=== PATIENT | male | born 1975 | race Caucasian/White ===

== ENCOUNTER 2025-01-08 14:46 | Emergency (ER) | payer MEDICARE, MEDICAID, SELFPAY ==
--- NOTE | 2025-01-08 14:53 | EKG_ITS ---
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
[2025-01-08 15:04] VITALS: BP 107/57; PULSE 74; RESP 18; TEMP 36.9; O2SAT 96
--- NOTE | 2025-01-08 15:16 | XR_ITS ---
Examination: CT brain head without contrast. 2-D sagittal coronal reconstructions Date and time of exam:January 08, 2025 1650 hours Comparison July 30, 2014 INDICATIONS: Headache and generalized weakness left facial numbness today CTDI: vol (mGy):56.5 DLP: (mGycm):1112 Technique: Multiple CT axial sections of the brain have been obtained, 5 mm slice thickness. Contrast has not been administered. 2-D sagittal, coronal reconstructions have been obtained Low dose protocols were performed. One or more of the following dose reduction techniques were used; automated exposure control, adjustment of the mA and/or KV according to patient size, use of iterative reconstruction technique. Findings: No significant ventricular enlargement. Intra-axial or extra-axial hemorrhage density is not seen. No mass effect or midline shift Basal cisterns are not remarkable. Fourth ventricle is midline. Cranial vault intact. Impression: Negative for acute hemorrhage, mass effect or midline shift As clinically warranted, brain MRI follow-up would best assess for demyelinating disease, acute ischemic change
--- NOTE | 2025-01-08 15:16 | XR_ITS ---
Examination: PA lateral chest 2 views TECHNIQUE: Upright PA lateral chest 2 views Exam date and time: January 08, 2025 1601 hours Comparison August 21, 2020 INDICATIONS: Onset chest pain today. FINDINGS: Normal heart size. CABG. Minor subsegmental atelectasis left midlung. No pneumonia or pulmonary edema IMPRESSION: No pneumonia or pulmonary edema
--- NOTE | 2025-01-08 15:17 | PD.EDRME ---
Rapid Medical Screening Exam E Arrival date/time: 01/08/25 14:46 49-year-old male with a history of CVA, [place] with 4 stents, hyperlipidemia, hypertension presents to the emergency room with a chief complaint of sternal chest pain that began today at 6 in the morning. Patient states he is also having left-sided facial numbness and left-sided arm numbness that also began at 6 AM this morning. I have greeted and performed a focused initial assessment of this patient. A comprehensive ED assessment and evaluation of the patient, analysis of all test results, and completion of the medical decision making process will be conducted by additional ED providers. Chief Complaint: General Adult/Misc Complain Time Seen by Provider: 01/08/25 15:10 Vital signs: Vital Signs Temperature 98.5 F 01/08/25 15:04 Pulse Rate 74 01/08/25 15:04 Respiratory Rate 18 01/08/25 15:04 Blood Pressure 107/57 L 01/08/25 15:04 Pulse Oximetry (%) 96 01/08/25 15:04 Oxygen Delivery Method Room Air 01/08/25 15:04 Vital signs reviewed by provider: Yes
[2025-01-08 16:02] LABS: Basophils % (Auto) 1 % (0-2.5); Eosinophils # (Auto) 0.2 Thou/mm3 (0.0-0.5); Eosinophils % (Auto) 3 % (0-10); Hematocrit 39.6 % (41.0-53.0); Hemoglobin 14.2 g/dL (13.5-16.0); Immature Granulocytes % (Auto) 0 % (0-0); Immature Granulocytes Auto 0.01 Thou/mm3 (0.00-0.00); Lymphocytes # (Auto) 1.1 Thou/mm3 (1.0-4.8); Lymphocytes % (Auto) 17 % (10-50); Mean Corpuscular HGB Conc 35.9 g/dl (31.0-37.0); Mean Corpuscular Hemoglobin 31.1 pg (25.0-35.0); Mean Corpuscular Volume 87 fL (80-100); Monocytes # (Auto) 0.5 Thou/mm3 (0.0-0.8); Monocytes % (Auto) 8 % (0-12); Neutrophils # (Auto) 4.5 Thou/mm3 (1.8-7.7); Neutrophils % (Auto) 72 % (37-80); Nucleated Red Blood Cell % 0 /100 WBC (0); Platelet Count 243 Thou/mm3 (140-440); RDW Standard Deviation 37.3 fL (35.1-43.9); Red Blood Count 4.57 Miln/mm3 (4.50-5.90); White Blood Count 6.2 Thou/mm3 (3.8-10.6)
[2025-01-08 16:17] LABS: INR 1.1 (0.9-1.3); Partial Thromboplastin Time 28.8 Seconds (22.0-36.0); Prothrombin Time 11.5 Seconds (9.0-12.2)
[2025-01-08 16:19] LABS: Alanine Aminotransferase 27 U/L (10-49); Albumin, Serum 4.2 gm/dL (3.5-5.0); Albumin/Globulin Ratio 1.7 (1.2-2.2); Alkaline Phosphatase 79 U/L (46-116); Anion Gap 8 (7-16); Aspartate Amino Transferase 28 U/L (0-34); BUN/Creatinine Ratio 16 Ratio (12-20); Bilirubin,Total 0.6 mg/dL (0.3-1.2); Blood Urea Nitrogen 22 mg/dL (9-23); Calcium 8.4 mg/dL (8.3-10.6); Calcium (Corrected) 8.4 mg/dL (8.5-10.1); Carbon Dioxide 24.7 mMol/L (20.0-31.0); Chloride 103 mMol/L (98-107); Creatinine (Component) 1.4 mg/dL (0.6-1.3); Globulin 2.5 gm/dL (2.3-3.5); Glucose 253 mg/dL (74-106); Magnesium 1.8 mg/dL (1.6-2.6); Osmolality,Calculated 284 (275-295); Potassium 5.2 mMol/L (3.4-5.1); Sodium 136 mMol/L (136-145); Total Protein 6.7 gm/dL (5.7-8.2); Troponin I < 0.020 ng/mL (0.0-0.045); eGFR > 60 See Note
[2025-01-08 16:33] LABS: Collection Type, Urine Clean Catch
[2025-01-08 16:42] LABS: Bilirubin,Urine Negative (Negative); Blood,Urine Negative (Negative); Clarity,Urine Clear (Clear/Hazy); Color,Urine Lt-Yellow (Lt Yel-Yel); Glucose, Urine 1+ (Negative); Ketones,Urine Negative (Negative); Leukocyte Esterase,Urine Negative (Negative); Nitrite,Urine Negative (Negative); PH,Urine 5.5 (5.0-7.0); Protein,Urine Negative (Neg - Trace); RBC,Urine < 1 /hpf (0-3); Specific Gravity,Urine 1.016 (1.001-1.035); Squamous Epithelial Cell,Urine 6 /hpf (0-5); Urobilinogen,Urine Negative mg/dL (0.0-1.0); WBC,Urine 2 /hpf (0-5)
[2025-01-08 16:53] LABS: B-Type Natriuretic Peptide 28 pg/mL (0-100)
[2025-01-08 17:09] LABS: Amphetamine/Methamp Scrn,U Negative (Negative); Barbiturate Screen,Urine Negative (Negative); Benzodiazepines Screen,Urine Negative (Negative); Benzoylecgonine Screen, Ur Negative (Negative); Fentanyl Screen,Urine Negative (Negative); Opiate Screen,Urine Positive (Negative); THC Screen,Urine Negative (Negative)
--- NOTE | 2025-01-08 17:47 | PD.EDADULT ---
ED General RME/HPI General Chief complaint: General Adult/Misc Complain Stated complaint: CHEST PAIN AT 6:30AM UNTIL NOW Time Seen by Provider: 01/08/25 15:10 Arrival date/time: 01/08/25 14:46 CC: Chest pain left anterior onset at 645 this morning, lasting approximately 7 hours stopped approximately 2 hours ago per the patient. Patient states if he pressed hard enough for this hand he could reproduce the pain denies shortness of breath or difficulty breathing also complaining of chronic constipation and his legs feeling weird patient currently denies shortness of breath difficulty breathing headache nausea vomiting or diarrhea. RME / HPI RME / HPI narrative: 01/08/25 14:46 49-year-old male with a history of CVA, [place] with 4 stents, hyperlipidemia, hypertension presents to the emergency room with a chief complaint of sternal chest pain that began today at 6 in the morning. Patient states he is also having left-sided facial numbness and left-sided arm numbness that also began at 6 AM this morning. I have greeted and performed a focused initial assessment of this patient. A comprehensive ED assessment and evaluation of the patient, analysis of all test results, and completion of the medical decision making process will be conducted by additional ED providers. Related Data Home Medications ?Medication ?Instructions ?Recorded ?Confirmed insulin pump-infusion set-blood ##0 07/30/14 06/15/24 glucose meter kit rosuvastatin 20 mg tablet (Crestor) 20 mg PO HS 11/02/17 06/15/24 carvedilol 12.5 mg tablet 25 mg PO BID 01/04/18 06/15/24 pregabalin 300 mg capsule (Lyrica) 300 mg PO HS 06/28/20 06/15/24 duloxetine 60 mg capsule,delayed 60 mg PO HS 03/21/21 06/15/24 release (Cymbalta) lorazepam 2 mg tablet (Ativan) 2 mg PO HS 03/21/21 06/15/24 alirocumab 75 mg/mL subcutaneous 75 mg subcut Q14D 04/23/24 06/15/24 pen injector (Praluent Pen) hydrocodone 10 mg-acetaminophen 1 tab PO QHS PRN 05/18/24 06/15/24 325 mg tablet nitrofurantoin 100 mg PO BID 05/18/24 06/15/24 monohydrate/macrocrystals 100 mg capsule (Macrobid) Previous Rx's ?Medication ?Instructions ?Recorded clopidogrel 75 mg tablet 75 mg PO QDAY #30 tabs 04/25/24 tamsulosin 0.4 mg capsule 0.8 mg (2 x 0.4 mg) PO QDAY #60 04/25/24 caps Allergies Allergy/AdvReac Type Severity Reaction Status Date / Time Penicillins Allergy Intermediate Rash Verified 01/08/25 14:51 hydromorphone (From Dilaudid) AdvReac Intermediate Agitated Verified 01/08/25 14:51 cheese AdvReac Mild Nausea Verified 01/08/25 14:51 egg AdvReac Mild I JUST DO Verified 01/08/25 14:51 NOT LIKE TO EAT EGG Review of Systems Review of Systems Narrative Review of Systems: GEN: No fever, no chills, no weight loss EYES: No discharge, no visual changes, no pain HEENT: No ear pain, no congestion, no sore throat PULM: No shortness of breath, no cough, no congestion CV: + chest pain, no dyspnea on exertion, no palpitations GI: No nausea, no vomiting, no diarrhea, no pain, no constipation : No frequency, no urgency, no dysuria MUSC/SKEL: No joint pain, no back pain SKIN: No rash PSYCH: No hallucinations, no depression HEME/LYMPH: No easy bleeding or bruising tendencies NEURO: No weakness, no headache Past Medical History Past Medical History NEUROLOGIC: Positive Neurological Disorders, Seizures, Migraine and Head Trauma CARDIAC: Positive Cardiac Disorders, Myocardial Infarction, Coronary Artery Disease, Atherosclerotic Heart Disease, Peripheral Vascular Disease, Hypercholesterolemia and Hypertension; Negative Congestive Heart Failure RESPIRATORY: Positive Asthma; Negative Chronic Obstructive Pulmonary Disease (COPD), Bronchitis or Sleep Apnea GASTROINTESTINAL: Positive Gastrointestinal Disorders, Gall Bladder Disease, Gastrointestinal Bleed, Ulcer, Gastroesophageal Reflux Disease and Obesity GENITOURINARY: Negative Genitourinary Disorders or Renal Disease MUSCULOSKELETAL: Negative Musculoskeletal Disorders ENT: Positive Head Trauma; Negative Blind or Eye Prosthesis ENDOCRINE: Positive Endocrine Disorders and Diabetes Mellitus Type 1; Negative Diabetes Mellitus Type 2 HEMATOLOGIC: Negative Blood Disorders, Anemia or Sickle Cell Disease PSYCHO/SOCIAL: Positive Depression and Anxiety OTHER HISTORY: Positive Hospitalization, Autoimmune Disease, Falls and Chicken Pox; Negative Blood Transfusions, Anesthesia Reactions, Measles, Mumps or Cancer Family History FAMILY HISTORY: Positive Family Cardiac Disorders and Family Surgery; Negative Family Anesthesia Reaction Surgical History SURGICAL: Positive Cardiac Surgery, Open Heart Surgery, Coronary Artery Bypass Graft, Coronary Stent, Angiogram, Eye Surgery and Abdominal Surgery Social History SMOKING STATUS: Never smoker SECOND HAND EXPOSURE: No SUBSTANCE USE: does not use ED Exam Narrative Physical exam: [General: Not in any acute distress Head normocephalic HEENT: Eyes pupils are PERRLA EOMs intact. Mouth pink moist membranes uvula is midline swallow symmetrical phonation is normal. All other subsystems of HEENT are within acceptable limits Neck is supple nontender Chest equal chest rise nontender to palpation Respiratory: Clear to auscultation no wheezes crackles or rubs CV: Rate rhythm is regular no murmurs rubs or clicks Abdomen is distended secondary to body habitus soft nontender no masses positive bowel sounds all 4 quadrants Back: No CVA tenderness no spinous process tenderness from cervical spine thoracic and lumbar spine Skin: Intact no petechiae rash induration ulceration or crepitus Extremities: Moving all extremity against resistance cap refill less than 2 seconds neurosensory intact. No lower extremity edema. Neuro: Awake alert oriented x3 Glascow coma 15 no focal deficits] Course Course Course Narrative: Patient shows no acute finding chest pain has resolved. Patient's potassium is risen slightly to 5.2 but no acute finding at this point in time patient is to closely follow-up with his primary care provider or return of the worsening of symptoms. Quality Measures none Orders Category Date Time Status EKG (ED ONLY) *Do not use* NOW Care 01/08/25 14:[address] head/brain wo con Stat Exams 01/08/25 15:16 Completed EKG (ED Only) Stat Exams 01/08/25 14:53 Draft XR chest 2V Stat Exams 01/08/25 15:16 Completed B-Type Natriuretic Peptide Stat Lab 01/08/25 15:31 Completed CBC Stat Lab 01/08/25 15:31 Completed Comprehensive Metabolic Panel Stat Lab 01/08/25 15:31 Completed Drug Screen,Urine Stat Lab 01/08/25 16:00 Completed Magnesium Stat Lab 01/08/25 15:31 Completed Partial Thromboplastin Time Stat Lab 01/08/25 15:31 Completed Prothrombin Time with INR Stat Lab 01/08/25 15:31 Completed Troponin I Stat Lab 01/08/25 15:31 Completed Urinalysis Stat Lab 01/08/25 16:00 Completed Vital Signs Vital signs: Vital Signs Temperature 98.5 F 01/08/25 15:04 Pulse Rate 74 01/08/25 15:04 Respiratory Rate 18 01/08/25 15:04 Blood Pressure 107/57 L 01/08/25 15:04 Pulse Oximetry (%) 96 01/08/25 15:04 Oxygen Delivery Method Room Air 01/08/25 15:04 Discharge Plan Plan Patient Disposition: HOME (Self Care) Patient condition on transfer: Stable Prescriptions/Referrals Prescriptions/Med Rec: No Action hydrocodone-acetaminophen 10-325 mg tablet 1 tab PO QHS PRN nitrofurantoin monohyd/m-cryst [Macrobid] 100 mg capsule 100 mg PO BID Rx Instructions: must administer with a meal/food (DME) insulin pump-infus. set-meter Kit SQ QDAY Qty: 0 Patient Comments: NOVOLOG INSULIN PUMP PROGRAMMED BY ENDOCRONOLIGI rosuvastatin [Crestor] 20 mg Tablet 20 mg PO HS carvedilol 12.5 mg Tablet 25 mg PO BID pregabalin [Lyrica] 300 mg Capsule 300 mg PO HS lorazepam [Ativan] 2 mg Tablet 2 mg PO HS MDD 1 duloxetine [Cymbalta] 60 mg Capsule,Delayed Release(Dr/Ec) 60 mg PO HS Praluent Pen 75 mg/mL Pen Injector 75 mg SUBCUT Q14D tamsulosin 0.4 mg Capsule 0.8 mg PO QDAY Qty: 60 0RF clopidogrel 75 mg Tablet 75 mg PO QDAY Qty: 30 0RF Referrals: Christopher Vidal MD [Primary Care Provider] - In 1 week Problem List Clinical Impression: Chest pain, Hyperkalemia Patient/Caregiver Discharge Instructions Education Materials: ED Chest Pain, Uncertain Cause Additional Instructions: Follow-up with your primary care provider your potassium has risen slightly please make sure you have it closely monitored. If there is a worsening of symptoms return the emergency room immediately for further evaluation. Print Language: Ecuadorean Stand Alone Forms: Estefania Award Info., Work/School Release, Patient Portal Info Letter PA/REAL ESTATE BROKER Supervising Physician PA/REAL ESTATE BROKER Supervising Physician: Lito Mueller ENP MDM Clinical Information Provided by: patient Medical Records reviewed [facility] Meds/Rx considered, not ordered None Labs/Rad/Tests considered, not ordered None Chronic Illness/Social Conditions Explain: Cardiac history hypertension hyperlipidemia EKG Interpretation EKG #1: EKG Interpretation: EKG performed at 1458 shows a ventricular rate of 73 SC interval 136 QRS of 94 QTc of 423 this is normal sinus rhythm. Labs Labs: Interpreted by ok Lab(s) Interpretation(s): CBC shows no leukocytosis anemia thrombocytopenia Coags within acceptable limits CMP shows a potassium of 5.2 creatinine of 1.4 glucose of 253 with no other electrolyte imbalances or renal impairment no transaminitis or T. bili elevation Troponin is negative BNP is negative Urine is 1+ glucose and 6 squamous epithelial cells Talk screen is positive for opiates. Imaging Imaging interpretation: Interpreted by ok Imaging Interpretation(s): CT head interpreted by radiology shows no acute finding that requires emergent or immediate intervention. Chest x-ray shows no acute finding that requires emergent or immediate intervention.
== END 2025-01-08 18:06 | disposition home or self-care (01) ==
PROVIDERS: Nurse Practitioner Family; Emergency Provider Family Medicine; PCP Family Medicine
DX: R07.89 Other chest pain (principal); R51.9 Headache, unspecified; R53.1 Weakness; R20.0 Anesthesia of skin; E87.5 Hyperkalemia; E78.00 Pure hypercholesterolemia, unspecified; I25.2 Old myocardial infarction; I25.10 Atherosclerotic heart disease of native coronary artery without angina pectoris; I10 Essential (primary) hypertension; Z86.73 Personal history of transient ischemic attack (TIA), and cerebral infarction without residual deficits
CPT/HCPCS: 36415; 70450; 71046; 80053; 80307; 81001; 83735; 83880; 84484; 85025; 85610; 85730; 93005; 99284

== ENCOUNTER → 2025-03-20 | Outpatient (BNVA) | payer MEDICARE, MEDICAID, SELFPAY | END | disposition home or self-care (01) | PROVIDERS: Visit Provider Urology | DX: N40.1 Benign prostatic hyperplasia with lower urinary tract symptoms (principal); N13.8 Other obstructive and reflux uropathy; N39.0 Urinary tract infection, site not specified; I10 Essential (primary) hypertension; I25.10 Atherosclerotic heart disease of native coronary artery without angina pectoris; E11.42 Type 2 diabetes mellitus with diabetic polyneuropathy; E66.9 Obesity, unspecified; Z68.27 Body mass index [BMI] 27.0-27.9, adult; E78.00 Pure hypercholesterolemia, unspecified; I25.2 Old myocardial infarction; K21.9 Gastro-esophageal reflux disease without esophagitis; Z95.1 Presence of aortocoronary bypass graft | CPT/HCPCS: 81003; 99212; G0463 ==

== ENCOUNTER → 2025-03-22 | Outpatient (CLI) | payer MEDICARE, MEDICAID, SELFPAY ==
[2025-03-22 12:34] LABS: Creatinine,Urine 87 mg/dL (30-125); Patient Height,Urine 511 Inches; Patient Weight,Urine 200 Pounds
[2025-03-22 13:30] LABS: Creatinine (Component) 1.2 mg/dL (0.6-1.3); Prostate Specific Antigen 0.51 ng/mL (0-4.00); eGFR > 60 See Note
[2025-03-22 14:18] LABS: Collection Time,Urine 24 Hours; Creatinine 24 Hour,Urine 1.0 gm/24hr (0.6-1.5); Total Volume,Urine 1140 mL (600-1800)
[2025-03-22 14:23] LABS: Creatinine Clearance Urine 11 mL/min (90-139); Serum Creatinine Result 1.2 mg/dL
== END | disposition home or self-care (01) ==
LOC: COPL 11:43
PROVIDERS: PCP Family Medicine; Referring Provider Urology; Visit Provider Urology
DX: N40.1 Benign prostatic hyperplasia with lower urinary tract symptoms (principal)
CPT/HCPCS: 36415; 82565; 82575; 84153

== ENCOUNTER → 2025-05-01 | Outpatient (BNVA) | payer MEDICARE, MEDICAID, SELFPAY | END | disposition home or self-care (01) | PROVIDERS: PCP Family Medicine; Referring Provider Family Medicine; Visit Provider Urology | DX: N40.1 Benign prostatic hyperplasia with lower urinary tract symptoms (principal); N13.8 Other obstructive and reflux uropathy; R39.198 Other difficulties with micturition; I10 Essential (primary) hypertension; I25.10 Atherosclerotic heart disease of native coronary artery without angina pectoris; I25.2 Old myocardial infarction; E78.00 Pure hypercholesterolemia, unspecified; K21.9 Gastro-esophageal reflux disease without esophagitis; E66.9 Obesity, unspecified; Z68.27 Body mass index [BMI] 27.0-27.9, adult; E10.9 Type 1 diabetes mellitus without complications; Z95.1 Presence of aortocoronary bypass graft | CPT/HCPCS: 76872 ==

== ENCOUNTER 2025-06-13 11:30 | Day surgery (SDC) | payer MEDICARE, SELFPAY ==
[2025-06-12 12:31] LABS: Alanine Aminotransferase 59 U/L (10-49); Albumin, Serum 4.3 gm/dL (3.5-5.0); Albumin/Globulin Ratio 1.7 (1.2-2.2); Alkaline Phosphatase 84 U/L (46-116); Anion Gap 11 (7-16); Aspartate Amino Transferase 50 U/L (0-34); BUN/Creatinine Ratio 17 Ratio (12-20); Bilirubin,Total 0.4 mg/dL (0.3-1.2); Blood Urea Nitrogen 20 mg/dL (9-23); Calcium 9.4 mg/dL (8.3-10.6); Calcium (Corrected) 9.4 mg/dL (8.5-10.1); Carbon Dioxide 25.3 mMol/L (20.0-31.0); Chloride 105 mMol/L (98-107); Creatinine (Component) 1.2 mg/dL (0.6-1.3); Globulin 2.5 gm/dL (2.3-3.5); Glucose 102 mg/dL (74-106); Osmolality,Calculated 283 (275-295); Potassium 4.8 mMol/L (3.4-5.1); Sodium 141 mMol/L (136-145); Total Protein 6.8 gm/dL (5.7-8.2); eGFR > 60 See Note
[2025-06-13 12:54] VITALS: BP 151/86; PULSE 76; RESP 14; TEMP 36.5; O2SAT 96; BMI 28.1
[2025-06-13] MEDS: RINGERS LACTATED 500 ML 1,000 ML 20 ML IV (14:12)
[2025-06-13 14:58] VITALS: BP 95/66; PULSE 74; RESP 16; TEMP 36.7; O2SAT 95
--- NOTE | 2025-06-13 14:58 | SUR.PHASEII ---
1458: Pt. AAOx4, vitals stable, breathing unlabored, no complaint of pain or nausea, no dressing in place, no active bleed noted, report received from Cinthia AGUIRRE and MD Aranda.
[2025-06-13 15:03] VITALS: BP 117/62; PULSE 85; RESP 16; TEMP 36.6; O2SAT 95
[2025-06-13 15:08] VITALS: BP 124/65; PULSE 73; RESP 15; TEMP 36.2; O2SAT 96
[2025-06-13 15:13] VITALS: BP 148/85; PULSE 75; RESP 12; TEMP 36.4; O2SAT 98
[2025-06-13 15:28] VITALS: BP 147/87; PULSE 75; RESP 12; TEMP 36.5; O2SAT 98
--- NOTE | 2025-06-13 15:35 | SUR.PHASEII ---
1535: Pt. AAOx4, vitals stable, breathing unlabored, no complaint of pain or nausea, no dressing in place, no active bleed noted, pt. able to pass gas, pt. tolerated sips of orange juice well, gave discharge instructions to the pt. and his ride, both verbalized understanding and had no further questions. Pt. left with all personal belongings.
== END 2025-06-13 15:35 | disposition home or self-care (01) ==
PROVIDERS: Anesthesiology; PCP Family Medicine; Referring Provider Internal Medicine Gastroenterology; Visit Provider Internal Medicine Gastroenterology
PROC: (CPT 43239; principal; 2025-06-13 11:30)
PROC: 0DJD8ZZ Inspection of Lower Intestinal Tract, Via Natural or Artificial Opening Endoscopic (ICD-10-PCS; CPT 45378; 2025-06-13 11:30)
DX: K64.8 Other hemorrhoids (principal); R10.84 Generalized abdominal pain; I10 Essential (primary) hypertension; E10.9 Type 1 diabetes mellitus without complications
CPT/HCPCS: 45378; 36415; 80053; A4649; J7120

== ENCOUNTER 2025-08-26 12:09 | Emergency (ER) | payer MEDICARE, MEDICAID, SELFPAY ==
[2025-08-26 13:06] VITALS: BP 98/58; PULSE 68; RESP 16; TEMP 36.8; O2SAT 95; BMI 28.8
--- NOTE | 2025-08-26 13:14 | PD.EDANKLE ---
Lower Extremity Injury RME/HPI General Chief Complaint: Ankle/Foot Injury Stated Complaint: RIGHT FOOT PAIN/INJURY Time Seen by Provider: 08/26/25 12:21 Arrival date/time: 08/26/25 12:09 49-year-old male patient came in for evaluation regarding foot pain. Patient noticed pain to the left foot since yesterday, described as dull ache, severity moderate. 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 Patient is denying any redness denies any fever denies any other complaints. Patient is asking if I can give him a hydrocortisone shot to the foot. Related Data Home Medications ?Medication ?Instructions ?Recorded ?Confirmed insulin pump-infusion set-blood ##0 07/30/14 05/01/25 glucose meter kit rosuvastatin 20 mg tablet (Crestor) 20 mg PO HS 11/02/17 06/13/25 carvedilol 12.5 mg tablet 25 mg PO BID 01/04/18 06/13/25 pregabalin 300 mg capsule (Lyrica) 300 mg PO HS 06/28/20 06/13/25 duloxetine 60 mg capsule,delayed 60 mg PO HS 03/21/21 06/13/25 release (Cymbalta) lorazepam 2 mg tablet (Ativan) 2 mg PO HS 03/21/21 06/13/25 Held on 06/13/25. Instructions: Resume on 06/14/25. alirocumab 75 mg/mL subcutaneous 75 mg subcut Q14D 04/23/24 06/13/25 pen injector (Praluent Pen) hydrocodone 10 mg-acetaminophen 1 tab PO QHS PRN pain 05/18/24 06/13/25 325 mg tablet Held on 06/13/25. Instructions: Resume on 06/14/25. Previous Rx's ?Medication ?Instructions ?Recorded clopidogrel 75 mg tablet 75 mg PO QDAY #30 tabs 04/25/24 tamsulosin 0.4 mg capsule 0.8 mg (2 x 0.4 mg) PO QDAY #60 04/25/24 caps Allergies Allergy/AdvReac Type Severity Reaction Status Date / Time Penicillins Allergy Intermediate Rash Verified 08/26/25 12:12 hydromorphone (From Dilaudid) AdvReac Intermediate Agitated Verified 08/26/25 12:12 cheese AdvReac Mild Nausea Verified 08/26/25 12:12 egg AdvReac Mild I JUST DO Verified 08/26/25 12:12 NOT LIKE TO EAT EGG Review of Systems Review of Systems Narrative Review of Systems: Review of system reviewed and within normal limits except mentioned in HPI ED Exam Narrative Physical exam: VITAL SIGNS: Reviewed. GENERAL APPEARANCE: Alert and interactive, follows commands, no acute distress, HEAD AND FACE: Non-traumatic. ENT: PERRL, pink conjunctivitis, eyelid no trauma, Mucous membrane moist. RECTAL: Deferred. GENITAL: Deferred. NEUROLOGICAL: Gross motor function intact sensory function intact, Appropriate for age. MUSCULOSKELETAL: low back nontender, full range of motion. EXTREMITIES: Midfoot pain, no deformity noted no redness no swelling full range of motion. SKIN: Color pink, dry, no rash, no lacerations, no abrasions, no contusions. LYMPHATICS: Deferred. Course Quality Measures none Orders Category Date Time Status Hydrocortisone Sod Succ Inj [SoluCORTEF Inj] Med 08/26/25 13:13 Discontinued 100 mg IM X1 ONE Ketorolac Inj [Toradol Inj] Med 08/26/25 13:13 Discontinued 30 mg IM X1 ONE Vital Signs Vital signs: Vital Signs Temperature 98.2 F 08/26/25 13:06 Pulse Rate 68 08/26/25 13:06 Respiratory Rate 16 08/26/25 13:06 Blood Pressure 98/58 L 08/26/25 13:06 Pulse Oximetry (%) 95 08/26/25 13:06 Oxygen Delivery Method Room Air 08/26/25 13:06 Extremity Injury, Lower MDM Narrative MDM Narrative:: 49-year-old male patient came in for evaluation regarding foot pain. Patient noticed pain to the left foot since yesterday, described as dull ache, severity moderate. 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 Patient is denying any redness denies any fever denies any other complaints. Patient is asking if I can give him a hydrocortisone shot to the foot. Patient was given hydrocortisone IM injection and Toradol. I told him I cannot give a cortisone shot to the foot he needs to see a study assistant for that. Patient agrees with the plan. Patient is due for discharged home Patient data External records reviewed:: None Clinical information provided by:: patient Social determinants that could affect healthcare access:: none Patient has the following chronic illnesses:: History of arthritis of the knee How is presenting disease/condition affected by chronic disease/condition?: exacerbated by Evaluation data The following diagnostics were reviewed and interpreted by me:: other (specify) (None) Lab and/or radiology exams considered but not ordered:: None Interpretation Summary: None Medications / Prescriptions Medications or Prescriptions considered but not ordered:: None Medication administrations:: Medication Administration History Discontinued Medications Hydrocortisone Sodium Succinate (Hydrocortisone Sod Succ Inj 100 Mg 2 Ml Vial) 100 mg IM X1 ONE Stop: 08/26/25 13:14 Last Admin: 08/26/25 15:32 Dose: 100 mg Documented By: Ketorolac Tromethamine (Ketorolac Inj 30 Mg/Ml Vial) 30 mg IM X1 ONE Stop: 08/26/25 13:14 Last Admin: 08/26/25 15:32 Dose: 30 mg Documented By: Toradol, hydrocortisone Consultations Consultation(s) initiated? (list below): No Diagnosis Extremity Injury, Lower Differential Diagnosis: other (Foot pain, foot arthritis, chronic foot pain) Most likely diagnosis given after review of the tests above:: Foot pain Admission Indicated Admission indicated?: not indicated Admission Request Was there a request for admission?: No Disposition Plan Disposition Plan: Discharge Discharge Attestation Discharge Attestation: The patient was given an opportunity to ask questions and understood the discharge instructions. Discharge instructions specifically effects, indications for sooner follow up or return to the emergency department, and the expected course of current diagnosis. Patient condition: Stable Discharge Plan Plan Patient Disposition: HOME (Self Care) Discharge Disposition comment: Stable Prescriptions/Referrals Prescriptions/Med Rec: No Action hydrocodone-acetaminophen 10-325 mg tablet 1 tab PO QHS PRN (Reason: pain) (DME) insulin pump-infus. set-meter Kit SQ QDAY Qty: 0 Patient Comments: NOVOLOG INSULIN PUMP PROGRAMMED BY ENDOCRONOLIGIST rosuvastatin [Crestor] 20 mg Tablet 20 mg PO HS carvedilol 12.5 mg Tablet 25 mg PO BID pregabalin [Lyrica] 300 mg Capsule 300 mg PO HS lorazepam [Ativan] 2 mg Tablet 2 mg PO HS MDD 1 duloxetine [Cymbalta] 60 mg Capsule,Delayed Release(Dr/Ec) 60 mg PO HS Praluent Pen 75 mg/mL Pen Injector 75 mg SUBCUT Q14D tamsulosin 0.4 mg Capsule 0.8 mg PO QDAY Qty: 60 0RF clopidogrel 75 mg Tablet 75 mg PO QDAY Qty: 30 0RF Referrals: Christopher Vidal MD [Primary Care Provider, Family Practice] - In 1 week Problem List Clinical Impression: Foot pain Patient/Caregiver Discharge Instructions Discharge Activity: activity as tolerated Education Materials: Understanding the Pain Response Additional Instructions: Thank you for the opportunity for serving you today. You are stable for discharged . You are advised to: Follow-up with your podiatry in 1 to 2 days Return to ED for worsening of symptoms Increase oral fluids Take [id number] Tylenol Motrin as appropriate Print Language: Indian Stand Alone Forms: Estefania Award Info., Patient Portal Info Letter PA/FLORICULTURE PROFESSOR Supervising Physician PA/FLORICULTURE PROFESSOR Supervising Physician: MD Rodolfo
[2025-08-26] MEDS: HYDROCORTISONE SOD SUCC INJ 100 MG 2 ML VIAL IM (15:32)
[2025-08-26] MEDS: KETOROLAC INJ 30 MG/ML VIAL IM (15:32)
[2025-08-26 15:35] VITALS: BP 122/72; PULSE 69; RESP 19; TEMP 36.9; O2SAT 97
== END 2025-08-26 16:19 | disposition home or self-care (01) ==
PROVIDERS: Emergency Provider Emergency Medicine; PCP Family Medicine
DX: M79.672 Pain in left foot (principal)
CPT/HCPCS: 93005; 96372; 99282; J1720; J1885